=== PATIENT | male | born 1980 | race Caucasian/White ===

== ENCOUNTER 2016-03-16 15:34 | Inpatient (IN) | payer MEDICAID ==
[~2016-03-16] VITALS: Ht 190.5 cm; Wt 107.4 kg
[~2016-03-16 15:34] MED LIST: ABILIFY10 MG PO; ACCURETIC 10-121 TAB PO; ELAVIL25 MG PO; GEODON20 MG PO; GLUCOPHAGE500 MG PO; HUMALOG 30100 UNITS/ INJ; KEFLEX500 MG PO; LAMICTAL25 MG PO; LANTUS INSULIN10 ML SC; LIPITOR10 MG PO; LYRICA75 MG PO; MOBIC7.5 MG PO; NEURONTIN 300300 MG PO; NOVOLOG100 U/M1 SQ; PROTONIX40 MG PO; ZOCOR40 MG PO
[2016-03-16 16:12] LABS: HEMATOCRIT 42.6 % (42.0-54.0); HEMOGLOBIN 14.3 g/dL (13.5-17.5); MCH 29.1 pg (26.0-34.0); MCHC 33.6 g/dL (31.0-37.0); MCV 86.6 fL (80.0-100.0); MEAN PLATELET VOLUME 9.2 fL (7.4-10.4); PLATELET COUNT 527 10x3/uL (130-400); RBC 4.92 10x6/uL (4.20-6.10); RDW 12.7 % (11.5-14.5); WBC 21.9 10x3/uL (4.8-10.8)
[2016-03-16 16:37] LABS: ALBUMIN 3.1 g/dL (3.4-5.0); ALKALINE PHOSPHATASE 140 U/L (46-116); ALT (SGPT) 19 U/L (10-68); AMYLASE - SERUM 24 U/L (25-115); BILIRUBIN - TOTAL 0.43 mg/dL (0.2-1.3); CALC OSMOLALITY 273 mosm/kg (275-300); CALCIUM 9.2 mg/dL (8.5-10.1); CARBON DIOXIDE 26.6 mmol/L (21.0-32.0); CHLORIDE - SERUM 95 mmol/L (98-107); GLUCOSE 223 mg/dL (74-106); LIPASE 42 U/L (73-393); POTASSIUM - SERUM 4.4 mmol/L (3.5-5.1); PROTEIN - SERUM 7.6 g/dL (6.4-8.2); SODIUM 134 mmol/L (136-145); UREA NITROGEN 10 mg/dL (7-18); eGFR NON AFRICAN AMERICAN > 90 mL/min (90-120)
[2016-03-16 17:10] LABS: APPEARANCE CLEAR (CLEAR); BILIRUBIN NEGATIVE (NEGATIVE); COLOR DK YELLOW (YELLOW); GLUCOSE 100 mg/dL (NEGATIVE); KETONE MODERATE mg/dL (NEGATIVE); LEUKOCYTE ESTERASE NEGATIVE (NEGATIVE); NITRITE NEGATIVE (NEGATIVE); PROTEIN 1+ mg/dL (NEGATIVE); SPECIFIC GRAVITY 1.015 (1.005-1.020); UROBILINOGEN NORMAL (NORMAL)
[2016-03-16 17:12] LABS: UDS - AMPHET NEGATIVE QUAL (NEGATIVE); UDS - BARB NEGATIVE QUAL (NEGATIVE); UDS - BENZO NEGATIVE QUAL (NEGATIVE); UDS - COCAINE NEGATIVE QUAL (NEGATIVE); UDS - METH NEGATIVE QUAL (NEGATIVE); UDS - OPIATE POSITIVE QUAL (NEGATIVE); UDS - PCP NEGATIVE QUAL (NEGATIVE); UDS - THC NEGATIVE QUAL (NEGATIVE)
[2016-03-16 17:12] LABS: EOSINOPHILS 4 % (0-7); LYMPHOCYTES 16 % (15-50); MONOCYTES 1 % (2-11); NEUTROPHILS 79 % (40-80); PLATELET ESTIMATE INCREASED
--- NOTE | 2016-03-16 18:47 | NUR ---
ER NURSE IS IN ROOM BRINGING PT TO FLOOR. PT TRANSPORTED VIA BED FROM ER.
[2016-03-16] MEDS ORDERED: KADIAN60 MG PO (18:54)
--- NOTE | 2016-03-16 18:55 | NUR ---
IV INFUSING TO LEFT UPPER ARM. MULTIPLE SORES (SOME OPEN, SOME SCABS) SEEN TO BILATERAL LOWER EXTREMITIES, TWO SORES (LARGE) TO HEAD (TOP OF HEAD OPEN, OVAL SHAPE) (RIGHT SIDED HEAD SEEN WITH SCABS). LEFT SIDE OF NOSE, RED AND SWOLLEN. ROOM AIR. WILL ADMIT AND PASS THIS REPORT TO NEXT SHIFT.
--- NOTE | 2016-03-16 19:30 | NUR ---
SITTING UP ON SIDE OF BED, UP AD MABEL W/O DIFF. NS INFUSING W/O DIFF VIA PUMP AT 125CC/HR TO LEFT UPPER AARM IV WITH NO R/S NOTED AT SITE.HEAD WOUNDS OPEN TO AIR, WITH PURENLENT ODORICIC DRAINAGE NOTED. BILAT LOWER LEGS WITH OPEN SORES AND MULTIPLE SCABBED OVER AREAS NOTED. STATES "THE ONE ON TOP OF MY HEAD STARTED WITH SUNBURN". NOSE RED AND SWOLLEN ON LEFT SIDE. WILL LET WOUND CARE NURSE KNOW OF WOUNDS. DENIES NEEDS AT THIS TIME. C/L IN REACH. CONTINUE TO MONITOR.
--- NOTE | 2016-03-16 20:05 | NUR ---
FSBS "276" COVERED WITH 10UNITS HUMALOG INSULIN PER S/S ORDERS. JANEL INJ WELL.
[2016-03-16 21:18] VITALS: BP 154/88
--- NOTE | 2016-03-17 00:09 | NUR ---
FSBS "266" COVERED WITH 10 UNITS HUMALOG INSULIN PER S/S ORDERS. JANEL INJ WELL TO LEFT UPPER ARM. C/L IN REACH.
[2016-03-17 01:12] VITALS: BP 172/77
--- NOTE | 2016-03-17 03:22 | NUR ---
EYES CLOSED, RESP UNLAB WITH NO S/S OF ACUTE DISTRESS NOTED. C/L IN REACH. CONTINUE TO MONITOR.
[2016-03-17 05:21] VITALS: BP 173/83
[2016-03-17 07:51] LABS: BASOPHILS 0.4 % (0.0-2.0); EOSINOPHILS 0.4 % (0-7); HEMATOCRIT 36.1 % (42.0-54.0); HEMOGLOBIN 11.8 g/dL (13.5-17.5); IMMATURE GRANULOCYTES 0.5 % (0-5); LYMPHOCYTES 11.3 % (15-50); MCH 28.2 pg (26.0-34.0); MCHC 32.7 g/dL (31.0-37.0); MCV 86.2 fL (80.0-100.0); MONOCYTES 9.4 % (2-11); RBC 4.19 10x6/uL (4.20-6.10); RDW 12.7 % (11.5-14.5)
--- NOTE | 2016-03-17 08:02 | NUR ---
ASSESSMENT DONE. PT SITTING UP IN BED EATTING. A/O X3. PT IS EATING IN THE DARK. STATES THE LIGHT HURTS HIS HEAD. NO DISTRESS NOTED. PT DENIES NEEDS AT THIS TIME. CALL LIGHT WITH IN REACH. WILL CONT. TO MONITOR.
[2016-03-17 08:04] LABS: PLATELET COUNT 419 10x3/uL (130-400); WBC 16.1 10x3/uL (4.8-10.8)
[2016-03-17 08:15] LABS: ALBUMIN 2.4 g/dL (3.4-5.0); ALKALINE PHOSPHATASE 112 U/L (46-116); BILIRUBIN - TOTAL 0.39 mg/dL (0.2-1.3); CALCIUM 8.7 mg/dL (8.5-10.1); CHLORIDE - SERUM 92 mmol/L (98-107); PROTEIN - SERUM 7.1 g/dL (6.4-8.2); SODIUM 128 mmol/L (136-145); UREA NITROGEN 8 mg/dL (7-18); eGFR NON AFRICAN AMERICAN > 90 mL/min (90-120)
[2016-03-17 08:20] LABS: ALT (SGPT) 14 U/L (10-68); CALC OSMOLALITY 264 mosm/kg (275-300); CARBON DIOXIDE 19.7 mmol/L (21.0-32.0); GLUCOSE 280 mg/dL (74-106); POTASSIUM - SERUM 3.6 mmol/L (3.5-5.1)
[2016-03-17 08:46] LABS: KETONE - SERUM SMALL mg/dL (NEGATIVE)
[2016-03-17 08:51] VITALS: BP 146/80
--- NOTE | 2016-03-17 09:33 | NUR ---
RESTS IN BED WITH CALL LIGHT IN REACH. DR. ANTHONY AT BS. WILL CONT. PLAN OF CARE.
--- NOTE | 2016-03-17 09:44 | NUR ---
PT PLACED ON TEMP CONTACT ISOLATION FOR POSSIBLE MRSA OF HEAD WOUNDS.
[2016-03-17 12:17] VITALS: BP 175/97
[2016-03-17 13:17] VITALS: Ht 190.5 cm; Wt 107.4 kg
[2016-03-17 14:53] VITALS: BP 171/93
--- NOTE | 2016-03-17 18:02 | NUR ---
PT RESTING. APPEARS COMFORTABLE. RESP EVEN AND UNLABORED. CALL LIGHT WITH IN REACH. WILL CONT. TO MONITOR.
[2016-03-17 20:00] VITALS: BP 151/72
--- NOTE | 2016-03-17 23:26 | NUR ---
Recieved report, assessment done, patient alert and oriented, contact isolation, Left upper arm IV with NS @ 125 , patient reported head pain 8 of 10, PRN MS 4 mg IV given at 2132, no acute distress noted, call light water and bedside table within reach, will continue to monitor.
[2016-03-18] VITALS: BP 135/51
--- NOTE | 2016-03-18 01:13 | NUR ---
Patient resting quietly in bed, call light, water and bedside table within reach, continue plan of care, will continue to monitor.
--- NOTE | 2016-03-18 01:55 | NUR ---
Patient reported head pain og 9 of 10, MS 4 mg given IV, sores on legs covered with gaause 4 x 4 and kerlix for patient comfort.
[2016-03-18 04:00] VITALS: BP 136/64
--- NOTE | 2016-03-18 04:56 | NUR ---
Patient resting in bed eyes closed, call light and water in reach, willcontinue to monitor.
[2016-03-18 06:03] LABS: BASOPHILS 0.5 % (0.0-2.0); EOSINOPHILS 1.4 % (0-7); HEMOGLOBIN 11.5 g/dL (13.5-17.5); IMMATURE GRANULOCYTES 0.5 % (0-5); LYMPHOCYTES 13.9 % (15-50); MCH 27.9 pg (26.0-34.0); MCHC 32.9 g/dL (31.0-37.0); MEAN PLATELET VOLUME 9.2 fL (7.4-10.4); MONOCYTES 9.7 % (2-11); PLATELET COUNT 439 10x3/uL (130-400); RBC 4.12 10x6/uL (4.20-6.10); RDW 12.7 % (11.5-14.5); WBC 13.3 10x3/uL (4.8-10.8)
[2016-03-18 06:41] LABS: ALBUMIN 2.6 g/dL (3.4-5.0); ALKALINE PHOSPHATASE 107 U/L (46-116); CALCIUM 7.9 mg/dL (8.5-10.1); CHLORIDE - SERUM 94 mmol/L (98-107); POTASSIUM - SERUM 3.8 mmol/L (3.5-5.1); PROTEIN - SERUM 6.3 g/dL (6.4-8.2); SODIUM 130 mmol/L (136-145); UREA NITROGEN 6 mg/dL (7-18)
[2016-03-18 06:43] LABS: ALT (SGPT) 18 U/L (10-68); CALC OSMOLALITY 260 mosm/kg (275-300); CARBON DIOXIDE 28.6 mmol/L (21.0-32.0); CREATININE - SERUM 0.7 mg/dL (0.6-1.3); GLUCOSE 136 mg/dL (74-106); eGFR NON AFRICAN AMERICAN > 90 mL/min (90-120)
--- NOTE | 2016-03-18 07:18 | HP ---
PATIENT: MARK HACKETT MEDICAL RECORD: [id number] ACCOUNT: [id number] LOCATION:[address] : [birth year] ADMISSION DATE: 03/16/16 HISTORY AND PHYSICAL EXAMINATION DATE OF ADMISSION: 03/16/2016 CHIEF COMPLAINT: Nausea and vomiting. HISTORY OF PRESENT ILLNESS: The patient is a 35-year-old insulin-dependent diabetic who states for the past couple of weeks, he has had nausea and vomiting. He has had sores on his head. He also thinks that he may be in DKA. PAST MEDICAL HISTORY: Apparently, the patient is disabled secondary to insulin-dependent diabetes. He has had a history of diabetic ketoacidosis. The patient has history of having peripheral neuropathy as well as having hyperlipidemia and hypertension. SOCIAL HISTORY: The patient was born and raised in [place], lived in [place] for the past 10 years. He is and a father of 3. HABITS: The patient is a smoker. He denies any ethanol use or abuse. ALLERGIES: PENICILLIN, BETA BLOCKERS, LAMICTAL. MEDICATIONS: Include: 1. Zocor 40 mg 1 p.o. every day. 2. Lisinopril 10 mg 1 p.o. every day. 3. Metformin 1000 mg 1 tablet b.i.d. 4. Lyrica 300 mg b.i.d. 5. NovoLog 55 units with each meal, sliding scale. 6. Lantus 37 units subQ twice daily. 7. Wellbutrin 150 mg b.i.d. REVIEW OF SYSTEMS: CONSTITUTIONAL: He denies any headaches, seizure or syncope. Denies change in visual or auditory acuity. PULMONARY: He denies any shortness of breath, cough, congestion, history of TB, asthma or bronchitis. CARDIOVASCULAR: He has had no chest pain, palpitation, PND or orthopnea. GASTROINTESTINAL: No chronic nausea, vomiting, melena or hematochezia. GENITOURINARY: No urgency, frequency, or dysuria. PHYSICAL EXAMINATION: GENERAL: He is not well kept male who is in no acute distress at the present time. He is tachycardic. VITAL SIGNS: Temperature 98.5, his pulse was 126, his respirations 20, his blood pressure 138/78. HEENT: Head is normocephalic. The patient does have an area on the cranium, which appears to be old in nature, healing, approximately 6 cm. He also has a fluctuant erythematous area on the right posterior occiput. His HEENT is normal. NECK: Supple. There is no adenopathy. HEART: Has regular rhythm. No murmurs, gallops or rubs. LUNGS: Clear. HISTORY AND PHYSICAL [id number] BURE,MARK ABDOMEN: Soft, bowel sounds are positive. EXTREMITIES: Lower extremities: The patient has 2+ dorsalis pedis and posterior tibial pulses. He has diffuse areas of lesions approximately measuring 2-3 cm above the anterior tibial surfaces that are devoid of skin. There is erythema. There is some yellow exudate present. LABORATORY DATA: White count was 21.9, his hemoglobin 14.3, hematocrit 42.6, his platelets were 527. The patient was positive for opioids. Sodium is 134, potassium 4.4, chloride 95, his CO2 is 26, anion gap 16.8, BUN is 10, creatinine of 1, glucose was 233. Ammonia was 55, lipase 42 and amylase 24. ASSESSMENT: Insulin-dependent diabetic with cellulitis, history of bipolar, hypertension, hyperlipidemia. PLAN: The patient is admitted. Blood cultures will be obtained. Also, we will check cultures for MRSA. He will be placed onto the floor. Infectious disease consultation will be obtained. He will be placed on insulin sliding scale q.6 hours as well. TRANSINT:[id number] Voice Confirmation ID: [id number] DOCUMENT ID: [id number] IRVIN KINNEY MD at 0718 CC: [id number] DICTATION DATE: 03/17/16724 RICKSHAW DRIVER: 03/17/16 0755 ADM IN [facility] [place] [id number] [place] [address]
--- NOTE | 2016-03-18 07:25 | NUR ---
ASSESSMENT DONE. PT SLIGHTLY DROWSY TALKING ON PHONE. O2 SAT 89% ON RA. PLACED ON 2L O2 VIA NC TO KEEP O2 SAT > 92%. PT'S NOSE RED, BUT SWELLING HAS IMPROVED, PT ABLE TO BREATH THROUGH NOSE. SWELLING AROUND EYES NOTED. PT DENIES NEEDS AT THIS TIME. WILL CONT. TO MONITOR.
[2016-03-18 08:34] VITALS: BP 146/78
--- NOTE | 2016-03-18 10:01 | NUR ---
RESTS IN ISOLATION WITH CALL LIGHT IN REACH. WILL MONITOR NEEDS.
[2016-03-18 11:00] VITALS: BP 127/63
--- NOTE | 2016-03-18 11:55 | NUR ---
PT WITH TEMP OF 100.8. DR. CONNELL HERE. REC'D ORDER FOR TYLENOL. MADE PT AN ICE PACK FOR SWELLING AND PAIN IN THE RIGHT SIDE OF HIS HEAD. HEAT IS NO LONGER EFFECTIVE IN RELIEVING PAIN. WILL CONT. TO MONITOR.
--- NOTE | 2016-03-18 12:39 | NUR ---
PT SLEEPING. APPEARS COMFORTABLE. RESP EVEN AND UNLABORED. CALL LIGHT WITH IN REACH. WILL CONT. TO MONITOR.
--- NOTE | 2016-03-18 13:40 | NUR ---
PT STATES HE IS FEELING BETTER. AMBULATING IN HALLS WITH FAMILY.
--- NOTE | 2016-03-18 15:36 | NUR ---
PT'S IV INFILTRATED. NURSE ATTEMPTED TO RESITE X3 AND WAS ABLE TO GET A FLASH OF BLOOD EACH TIME BUT THE VEIN WOULD BLOW WHEN FLUSING IV. CALLED SANDY THE VENOUS ACCESS NURSE AND LEFT A MESSAGE FOR HER TO RETURN MY CALL.
--- NOTE | 2016-03-18 15:38 | NUR ---
Patient Name: MARK HACKETT Admission Status: ER Accout number: [id number] Admission Date: 03-16-2016 : 1980 Admission Diagnosis:TYPE 1 DIABETES MELLITUS WITH KETOACIDOSIS WITHOUT COMA Attending: WILI Current LOS: 2 Anticipated DC Date: 03-22-2016 Planned Disposition: Home or Self Care Primary Insurance: MEDICAID [place] Discharge Planning Comments: CM MET WITH PATIENT REGARDING D/C NEEDS AND PLANS. PATIENT STATED HE LIVES WITH HIS SPOUSE (WILLIAN) AND SHE WILL DRIVE HIM HOME AT DISCHARGE. PATIENT STATES THERE ARE NO STEPS OR STAIRS AT HIS HOME. PATIENT STATED HE IS INDEPENDENT WITH HIS CARE AND HAS NO DME AT HOME. PATIENTS PCP IS DR. ARROYO AND PHARMACY IS [facility] [address] [facility]. PATIENT HAS A CANE AND GLUCOMETER AT HOME. PATIENT STATED HE CHECKS HIS BLOOD SUGAR OFTEN. PATIENT HAS REFUSED HOME HEALTH AT THIS TIME. CM WILL CONTINUE TO FOLLOW PATIENT WITH D/C NEEDS AND PLANS. PCP DR. CRUZ SCHULZ ON [address] [facility] [phone] WILLIAN (SPOUSE) [phone] Dub Room Engineer: Kaya Brock Is the patient Alert and Oriented? Yes 0 * How many steps to enter\exit or inside your home? 0 0 * PCP DR. ARROYO 0 * Pharmacy [facility] [address] * Preadmission Environment Home with Family 0 * ADLs Independent 0 * Equipment None 0 * List name and contact numbers for known caregivers / representatives who currently or will assist patient after discharge: WILLIAN (SPOUSE) [phone] 0 * Community resources currently utilized None 0 * Additional services required to return to the preadmission environment? Yes 0 * Can the patient safely return to the preadmission environment? Yes 0 * Has this patient been hospitalized within the prior 30 days at any hospital? No 0 Grand Total: 0
[2016-03-18 16:39] VITALS: BP 134/72
--- NOTE | 2016-03-18 17:27 | NUR ---
22G IV PLACED IN PT'S RIGHT WRIST BY STONE CAMPOS RN.
--- NOTE | 2016-03-18 17:39 | NUR ---
PT SITTING UP IN BED EATING AND WATCHING TV. NO DISTRESS NOTED. CALL LIGHT WITH IN REACH. WILL CONT. TO MONITOR.
--- NOTE | 2016-03-18 19:20 | NUR ---
PT. IN BED WITH HOB UP FOR COMFORT WATCHING T.V. I.V. INFUSING VIA PUMP INTO RT.WRIST OF N.S. @ 125/HR WITHOUT ANY ALARMS. ASSESSMENT COMPLETED. O2 ON AT 2L/MIN VIA N/C TO KEEP O2 SAT UP. CALL LIGHT WITHIN REACH FOR ANY NEEDS. PT. UNDERSTANDS REASON FOR CONTACT ISOLATION PRECAUTIONS.
[2016-03-18 20:00] VITALS: BP 141/68
[2016-03-19] VITALS: BP 119/72
--- NOTE | 2016-03-19 00:05 | NUR ---
PT. IN BED WITH HOB UP FOR COMFORT WITH EYES CLOSED AND RESP. EVEN. O2 ON VIA N/C @ 2L/MIN. NO VISIBLE DISTRESS OBSERVED. CALL LIGHT WITHIN REACH.
[2016-03-19 04:00] VITALS: BP 120/68
--- NOTE | 2016-03-19 04:01 | NUR ---
PT. IN BED WITH HOB UP FOR COMFORT WITH EYES CLOSED AND RESP. EVEN WITH CALL LIGHT WITHIN REACH.
[2016-03-19 04:59] LABS: BASOPHILS 0.5 % (0.0-2.0); HEMATOCRIT 30.8 % (42.0-54.0); HEMOGLOBIN 10.1 g/dL (13.5-17.5); IMMATURE GRANULOCYTES 0.5 % (0-5); LYMPHOCYTES 20.7 % (15-50); MCH 27.9 pg (26.0-34.0); MCHC 32.8 g/dL (31.0-37.0); MCV 85.1 fL (80.0-100.0); MEAN PLATELET VOLUME 9.5 fL (7.4-10.4); MONOCYTES 9.1 % (2-11); NEUTROPHILS 66.2 % (40-80); PLATELET COUNT 386 10x3/uL (130-400); RBC 3.62 10x6/uL (4.20-6.10); RDW 12.6 % (11.5-14.5); WBC 10.2 10x3/uL (4.8-10.8)
[2016-03-19 05:20] LABS: CALCIUM 8.3 mg/dL (8.5-10.1); CARBON DIOXIDE 28.8 mmol/L (21.0-32.0); CHLORIDE - SERUM 93 mmol/L (98-107); CREATININE - SERUM 0.7 mg/dL (0.6-1.3); SODIUM 129 mmol/L (136-145); UREA NITROGEN 6 mg/dL (7-18); eGFR NON AFRICAN AMERICAN > 90 mL/min (90-120)
[2016-03-19 05:22] LABS: CALC OSMOLALITY 254 mosm/kg (275-300); GLUCOSE 66 mg/dL (74-106); POTASSIUM - SERUM 3.2 mmol/L (3.5-5.1)
--- NOTE | 2016-03-19 07:39 | NUR ---
ASSESSMENT DONE. PT SLEEPING, EASILY AROUSED. SEEMS SLIGHTY DROUSY FROM ALL THE MORHINE HE HAS BEEN GETTING. NOT WEARING O2. NURSE ENCOURGE PT TO WEAR OXYGEN. PT HAD REMOVED BILATERAL LE DRESSING AND WAS COVERING WOUNDS WITH A WASH CLOTH. WILL RE-DRESS. PT DENIES OTHER NEEDS AT THIS TIME. SWELLING AROUND EYES AND NOSE HAS IMPROVED. WILL CONT. TO MONITOR. CALL LIGHT WITH IN REACH.
[2016-03-19 08:31] VITALS: BP 138/74
--- NOTE | 2016-03-19 09:43 | NUR ---
RESTS IN ISOLATION ROOM. CALL LIGHT IN REACH. WILL MONITOR NEEDS.
[2016-03-19 12:05] VITALS: BP 145/82
--- NOTE | 2016-03-19 12:20 | NUR ---
PT SHOWERED. NURSE APPLED DRESSINGS TO BILATERAL LOWER EXTREMITES. WOUNDS BLEEDING. IT APPEARS PT PICKED ALL THE SCABS OFF WHILE IN THE SHOWER.
[2016-03-19 16:00] VITALS: BP 116/66
--- NOTE | 2016-03-19 16:04 | NUR ---
PT SLEEPING. APPEARS COMFORTABLE. RESP EVEN AND UNLABORED. NO DISTRESS NOTED. CALL LIGHT WITH IN REACH. WILL CONT. TO MONITOR.
--- NOTE | 2016-03-19 18:05 | NUR ---
PT SITTING STYLE ON BED. WATCHING TV. A/O. DENIES NEEDS AT THIS TIME. CALL LIGHT WITH IN REACH. WILL CONT. TO MONITOR.
--- NOTE | 2016-03-19 19:42 | NUR ---
RESUMED CARE OF PT, 02-2L, IV-R. WRIST NS-125, BILATERAL DRESSING TO LOWER LEGS, ON ISO CONTACT,DENIES ANY NEEDS, CALL LIGHT IN REACH, BED IS LOW, WILL CONTINUE TO MONITOR
[2016-03-19 20:49] VITALS: BP 117/64
--- NOTE | 2016-03-19 23:42 | NUR ---
BLOODSUGAR 150- NO COVERAGE NEEDED PER SCALE
[2016-03-20 00:02] VITALS: BP 137/74
[2016-03-20 04:15] VITALS: BP 144/82
--- NOTE | 2016-03-20 06:04 | NUR ---
STUARTBETH-58, GAVE 2 ORANGE JUCIES
--- NOTE | 2016-03-20 07:28 | NUR ---
AM ROUNDING- PT SITTING UP IN BED WITH EYES OPEN. IN CONTACT ISOLATION FOR MRSA WITH DRAINING LESION. FSBS Q6H, 61 THIS AM. ON O2 AT 2L VIA NC WHEN NEEDED. CAN BE ON ROOM AIR PER REPORT FROM TAPPER SUPERVISOR NURSE, MILADYS. PT IS UP AD MABEL. ALERT AND ORIENTED. IV SEEN TO RIGHT WRIST WITH NS RUNNING AT 125CC. NO NEED AT CURRENT TIME. WILL CONTINUE TO MONITOR.
[2016-03-20 08:55] VITALS: BP 123/76
[2016-03-20 13:42] VITALS: BP 119/90
[2016-03-20 17:02] VITALS: BP 123/73
--- NOTE | 2016-03-20 17:18 | NUR ---
APPLIED ANTIBIOTIC OINTMENT TO PTS WOUNDS/SCABS TO BILATERAL LEGS ORDERED. COVERED WITH 4X4 GUAZE AND SECURED WITH KERLIX AND TAPE. TOLERATED WELL.
--- NOTE | 2016-03-20 17:25 | NUR ---
PT SITTING UP IN BED EATING DINNER. NO NEED AT CURRENT TIME. WILL CONTINUE TO MONITOR.
--- NOTE | 2016-03-20 19:51 | NUR ---
RESUME CARE OF PT, 02-2L, [id number], CLINDAMYCIN INFUSING, DENIES ANY NEEDS, CALL LIGHT IN REACH, WILL CONTINUE TO MONITOR
[2016-03-20 20:15] VITALS: BP 124/83
[2016-03-21 00:23] VITALS: BP 113/64
[2016-03-21 04:20] VITALS: BP 108/60
[2016-03-21 05:47] LABS: CALC OSMOLALITY 265 mosm/kg (275-300); CALCIUM 8.2 mg/dL (8.5-10.1); CARBON DIOXIDE 30.5 mmol/L (21.0-32.0); CHLORIDE - SERUM 97 mmol/L (98-107); CREATININE - SERUM 0.6 mg/dL (0.6-1.3); GLUCOSE 90 mg/dL (74-106); POTASSIUM - SERUM 3.7 mmol/L (3.5-5.1); SODIUM 134 mmol/L (136-145); UREA NITROGEN 6 mg/dL (7-18); eGFR NON AFRICAN AMERICAN > 90 mL/min (90-120)
[2016-03-21 06:09] LABS: BASOPHILS 1.3 % (0.0-2.0); EOSINOPHILS 5.7 % (0-7); HEMATOCRIT 32.5 % (42.0-54.0); HEMOGLOBIN 10.6 g/dL (13.5-17.5); IMMATURE GRANULOCYTES 0.7 % (0-5); LYMPHOCYTES 30.8 % (15-50); MCHC 32.6 g/dL (31.0-37.0); MCV 85.8 fL (80.0-100.0); MEAN PLATELET VOLUME 9.2 fL (7.4-10.4); MONOCYTES 11.6 % (2-11); NEUTROPHILS 49.9 % (40-80); PLATELET COUNT 360 10x3/uL (130-400); RBC 3.79 10x6/uL (4.20-6.10); RDW 12.7 % (11.5-14.5); WBC 6.8 10x3/uL (4.8-10.8)
--- NOTE | 2016-03-21 07:37 | NUR ---
AM ROUNDING- PT LAYING IN BED ON RIGHT SIDE WITH EYES OPEN. FSBS Q6H, 77 THIS AM, NO COVERAGE NEEDED. IV SEEN TO RIGHT WRIST WITH NS RUNNING AT 50CC. ON 2L OF VIA CO. NO MONITOR. IN CONTACT ISOLATION FOR MRSA. SCABS SEEN TO BILATERAL LEGS. TWO SCABS SEEN TO TOP OF HEAD. PT IS ALERT AND ORIENTED, UP AD MABEL. NO NEED AT CURRENT TIME. WILL CONTINUE TO MONITOR.
[2016-03-21 08:00] VITALS: BP 121/72
[2016-03-21] MEDS ORDERED: CARDIZEM CD240 MG PO (09:31)
[2016-03-21] MEDS ORDERED: NEOSPORIN OINTM15 GM TOPICAL (09:32)
[2016-03-21] MEDS ORDERED: CLEOCIN HCL150 MG PO (09:32)
--- NOTE | 2016-03-21 12:19 | NUR ---
PT STATED HE WOULD TAKE NOON INSULIN AT HOME. EXPLAINED PTS D/C PAPERWORK TO HIM. PT SIGNED AND DATED D/C PAPERWORK. IV REMOVED WITH CATH TIP INTACT. TOLERATED WELL. SECURED WITH 2X2 GUAZE AND SECURED WITH TAPE. AWAITING PT TO GET BELONGINGS FOR GATE PERSONBrady DORSEY TO TAKE HIM OUT IN WHEELCHAIR.
--- NOTE | 2016-03-21 12:22 | NUR ---
PT D/C TO HOME VIA WHEELCHAIR.
== END 2016-03-21 12:24 | disposition home or self-care (01) | DRG 638 ==
LOC: D.ER 15:34 → D.M2 18:22
PROVIDERS: Emergency Medicine; Family Medicine; ADMIT Family Medicine
DX: E10.10 Type 1 diabetes mellitus with ketoacidosis without coma (principal); L97.909 Non-pressure chronic ulcer of unspecified part of unspecified lower leg with unspecified severity; L03.811 Cellulitis of head [any part, except face]; Z79.4 Long term (current) use of insulin; E78.5 Hyperlipidemia, unspecified; I10 Essential (primary) hypertension; L98.499 Non-pressure chronic ulcer of skin of other sites with unspecified severity; B95.62 Methicillin resistant Staphylococcus aureus infection as the cause of diseases classified elsewhere

== ENCOUNTER 2016-05-06 00:50 | Emergency (ER) | payer MEDICAID ==
[2016-03-17 13:17] VITALS: BMI 27.8
[~2016-05-06 00:50] MED LIST changes: +CARDIZEM CD240 MG PO; +CLEOCIN HCL150 MG PO; +KADIAN60 MG PO; +NEOSPORIN OINTM15 GM TOPICAL
== END 2016-05-06 01:15 | disposition left against medical advice (07) ==
LOC: D.ER 00:50
DX: R07.9 Chest pain, unspecified (principal); R00.0 Tachycardia, unspecified; E11.9 Type 2 diabetes mellitus without complications; Z79.4 Long term (current) use of insulin; E78.5 Hyperlipidemia, unspecified

== ENCOUNTER 2017-11-25 05:55 | Inpatient (IN) | payer MEDICAID ==
[2017-11-25] VITALS (21 sets, daily range): BP systolic 109–164; BP diastolic 58–81; BMI 25.0
[~2017-11-25] VITALS: Ht 190.5 cm; Wt 93.3 kg
[2017-11-25 06:38] LABS: BASOPHILS 0.1 % (0-2); EOSINOPHILS 0.1 % (0-7); HEMATOCRIT 46.6 % (42.0-54.0); HEMOGLOBIN 15.7 g/dL (13.5-17.5); IMMATURE GRANULOCYTES 0.8 % (0-5); LYMPHOCYTES 5.2 % (15-50); MCH 31.6 pg (26.0-34.0); MCHC 33.7 g/dL (31.0-37.0); MCV 93.8 fL (80.0-100.0); MEAN PLATELET VOLUME 11.6 fL (7.4-10.4); MONOCYTES 3.7 % (2-11); NEUTROPHILS 90.1 % (40-80); RBC 4.97 10x6/uL (4.20-6.10); RDW 13.1 % (11.5-14.5); WBC 17.7 10x3/uL (4.8-10.8)
[2017-11-25 06:44] LABS: PLATELET COUNT 440 10x3/uL (130-400)
[2017-11-25 07:11] LABS: KETONE - SERUM SMALL mg/dL (NEGATIVE)
[2017-11-25 07:29] LABS: APPEARANCE CLEAR (CLEAR); BILIRUBIN NEGATIVE (NEGATIVE); COLOR YELLOW (YELLOW); GLUCOSE 500 mg/dL (NEGATIVE); KETONE LARGE mg/dL (NEGATIVE); NITRITE NEGATIVE (NEGATIVE); PROTEIN NEGATIVE (NEGATIVE); SPECIFIC GRAVITY 1.015 (1.005-1.020); UROBILINOGEN NORMAL (NORMAL)
[2017-11-25 07:30] LABS: ALBUMIN 3.3 g/dL (3.4-5.0); ALKALINE PHOSPHATASE 215 U/L (46-116); ALT (SGPT) 59 U/L (10-68); BILIRUBIN - TOTAL 0.65 mg/dL (0.2-1.3); CALCIUM 8.8 mg/dL (8.5-10.1); CHLORIDE - SERUM 88 mmol/L (98-107); CKMB 1.1 U/L (0.0-3.6); CREATINE KINASE 111 UL (21-232); CREATININE - SERUM 2.3 mg/dL (0.6-1.3); MAGNESIUM - SERUM 2.1 mg/dL (1.8-2.4); POTASSIUM - SERUM 5.1 mmol/L (3.5-5.1); PROTEIN - SERUM 7.8 g/dL (6.4-8.2); SODIUM 132 mmol/L (136-145); UREA NITROGEN 38 mg/dL (7-18); eGFR NON AFRICAN AMERICAN 34 mL/min (90-120)
[2017-11-25 07:38] LABS: CALC OSMOLALITY 311 mosm/kg (275-300); TROPONIN-I < 0.017 ng/mL (0.000-0.060)
[2017-11-25 07:39] LABS: CARBON DIOXIDE 7.7 mmol/L (21.0-32.0)
[2017-11-25 07:40] LABS: GLUCOSE 783 mg/dL (74-106)
[2017-11-25 07:48] LABS: PHOSPHOROUS 7.8 mg/dL (2.5-4.9); THYROID STIMULATING HORMONE 1.02 uIU/mL (0.36-3.74)
[2017-11-25] MEDS ORDERED: LOPRESSOR25 MG (10:34)
[2017-11-25 13:38] LABS: ANION GAP 22.1 mmol/L (8-16); CALCIUM 8.4 mg/dL (8.5-10.1); CARBON DIOXIDE 19.2 mmol/L (21.0-32.0); CREATININE - SERUM 1.7 mg/dL (0.6-1.3); MAGNESIUM - SERUM 1.8 mg/dL (1.8-2.4); POTASSIUM - SERUM 4.3 mmol/L (3.5-5.1)
[2017-11-25 16:22] LABS: ANION GAP 18.5 mmol/L (8-16); CALCIUM 8.7 mg/dL (8.5-10.1); CARBON DIOXIDE 21.5 mmol/L (21.0-32.0); CREATININE - SERUM 1.7 mg/dL (0.6-1.3); MAGNESIUM - SERUM 1.8 mg/dL (1.8-2.4)
[2017-11-25 20:04] LABS: ANION GAP 18.1 mmol/L (8-16); CALCIUM 8.4 mg/dL (8.5-10.1); CARBON DIOXIDE 22.9 mmol/L (21.0-32.0); CREATININE - SERUM 1.5 mg/dL (0.6-1.3); MAGNESIUM - SERUM 1.7 mg/dL (1.8-2.4)
[2017-11-26] VITALS (17 sets, daily range): BP systolic 105–161; BP diastolic 64–92; Ht 190.5 cm; Wt 93.3 kg
[2017-11-26 02:54] LABS: BASOPHILS 0.2 % (0-2); EOSINOPHILS 0 % (0-7); HEMATOCRIT 29.9 % (42.0-54.0); IMMATURE GRANULOCYTES 0.2 % (0-5); LYMPHOCYTES 9.7 % (15-50); MCH 29.9 pg (26.0-34.0); MCHC 33.4 g/dL (31.0-37.0); MEAN PLATELET VOLUME 9.4 fL (7.4-10.4); MONOCYTES 6.9 % (2-11); RBC 3.34 10x6/uL (4.20-6.10); RDW 12.4 % (11.5-14.5); WBC 12.7 10x3/uL (4.8-10.8)
[2017-11-26 02:55] LABS: MCV 89.5 fL (80.0-100.0); PLATELET COUNT 225 10x3/uL (130-400)
[2017-11-26 03:30] LABS: ALKALINE PHOSPHATASE 117 U/L (46-116); BILIRUBIN - TOTAL 0.33 mg/dL (0.2-1.3); CALC OSMOLALITY 295 mosm/kg (275-300); CARBON DIOXIDE 16.1 mmol/L (21.0-32.0); CHLORIDE - SERUM 110 mmol/L (98-107); CREATININE - SERUM 0.9 mg/dL (0.6-1.3); GLUCOSE 266 mg/dL (74-106); SODIUM 143 mmol/L (136-145); UREA NITROGEN 18 mg/dL (7-18); eGFR NON AFRICAN AMERICAN > 90 mL/min (90-120)
[2017-11-26 03:31] LABS: ALBUMIN 1.8 g/dL (3.4-5.0); ALT (SGPT) 27 U/L (10-68); CALCIUM 6.1 mg/dL (8.5-10.1); PROTEIN - SERUM 4.4 g/dL (6.4-8.2)
[2017-11-26 17:19] LABS: CHLORIDE - SERUM 100 mmol/L (98-107); CREATININE - SERUM 1.1 mg/dL (0.6-1.3); SODIUM 137 mmol/L (136-145); UREA NITROGEN 14 mg/dL (7-18); eGFR NON AFRICAN AMERICAN 80 mL/min (90-120)
[2017-11-26 17:20] LABS: CALC OSMOLALITY 279 mosm/kg (275-300); CALCIUM 8.4 mg/dL (8.5-10.1); CARBON DIOXIDE 23.6 mmol/L (21.0-32.0); GLUCOSE 197 mg/dL (74-106); POTASSIUM - SERUM 3.5 mmol/L (3.5-5.1)
[2017-11-27 00:55] VITALS: BP 148/64
[2017-11-27 05:38] LABS: BASOPHILS 0.5 % (0-2); EOSINOPHILS 0.5 % (0-7); HEMOGLOBIN 10.9 g/dL (13.5-17.5); IMMATURE GRANULOCYTES 0.3 % (0-5); LYMPHOCYTES 33.6 % (15-50); MCH 29.9 pg (26.0-34.0); MCV 90.7 fL (80.0-100.0); MEAN PLATELET VOLUME 9.5 fL (7.4-10.4); MONOCYTES 8.7 % (2-11); NEUTROPHILS 56.4 % (40-80); PLATELET COUNT 213 10x3/uL (130-400); RBC 3.64 10x6/uL (4.20-6.10); RDW 12.4 % (11.5-14.5)
[2017-11-27 05:45] LABS: WBC 7.7 10x3/uL (4.8-10.8)
[2017-11-27 06:11] LABS: ALBUMIN 2.1 g/dL (3.4-5.0); CALCIUM 7.6 mg/dL (8.5-10.1); POTASSIUM - SERUM 3.2 mmol/L (3.5-5.1); SODIUM 142 mmol/L (136-145)
[2017-11-27 06:36] VITALS: BP 129/64
[2017-11-27 06:41] LABS: ALKALINE PHOSPHATASE 146 U/L (46-116); ALT (SGPT) 32 U/L (10-68); BILIRUBIN - TOTAL 0.27 mg/dL (0.2-1.3); CARBON DIOXIDE 24.9 mmol/L (21.0-32.0); CHLORIDE - SERUM 106 mmol/L (98-107); PROTEIN - SERUM 5.2 g/dL (6.4-8.2)
[2017-11-27 06:45] LABS: CALC OSMOLALITY 280 mosm/kg (275-300); CREATININE - SERUM 0.8 mg/dL (0.6-1.3); GLUCOSE 96 mg/dL (74-106); UREA NITROGEN 8 mg/dL (7-18); eGFR NON AFRICAN AMERICAN > 90 mL/min (90-120)
[2017-11-27 12:17] VITALS: BP 166/91
== END 2017-11-27 15:16 | disposition home or self-care (01) | DRG 639 ==
LOC: D.ER 05:55 → D.CVICU 08:54 → D.ICU 20:43 → D.M3 11-26 14:37
PROVIDERS: Emergency Medicine; Family Medicine
DX: E10.10 Type 1 diabetes mellitus with ketoacidosis without coma (principal); Z79.4 Long term (current) use of insulin; I10 Essential (primary) hypertension; F31.9 Bipolar disorder, unspecified; E10.40 Type 1 diabetes mellitus with diabetic neuropathy, unspecified; E78.5 Hyperlipidemia, unspecified; F17.210 Nicotine dependence, cigarettes, uncomplicated

== ENCOUNTER 2018-02-03 11:34 | Emergency (ER) | payer MEDICAID ==
[~2018-02-03] VITALS: Ht 190.5 cm; Wt 99.8 kg
[~2018-02-03 11:34] MED LIST changes: +LOPRESSOR25 MG
[2018-02-03 11:58] VITALS: BP 130/94; Ht 190.5 cm; Wt 99.8 kg
[2018-02-03] MEDS ORDERED: CIPRODEX OTIC7.5 ML LEFT EAR (12:40)
[2018-02-03] MEDS ORDERED: TORADOL10 MG PO (12:40)
[2018-02-03] MEDS ORDERED: DOXYCYCLINE HY100 M2 PO (12:40)
== END 2018-02-03 14:00 | disposition home or self-care (01) ==
LOC: D.ER 11:34
DX: H66.92 Otitis media, unspecified, left ear (principal); J01.90 Acute sinusitis, unspecified; E11.9 Type 2 diabetes mellitus without complications; I10 Essential (primary) hypertension; F17.200 Nicotine dependence, unspecified, uncomplicated

== ENCOUNTER → 2018-05-15 10:18 | Outpatient (CLI) | payer MEDICAID ==
[2018-02-03 11:58] VITALS: BMI 25.7
[~2018-05-15 10:18] MED LIST changes: +CIPRODEX OTIC7.5 ML LEFT EAR; +DOXYCYCLINE HY100 M2 PO; +TORADOL10 MG PO
== END | disposition home or self-care (01) ==
LOC: D.US 10:18
PROVIDERS: ATTEND Emergency Medicine
DX: R19.7 Diarrhea, unspecified (principal)

== ENCOUNTER 2018-11-06 21:48 | Inpatient (IN) | payer MEDICAID ==
[~2018-11-06] VITALS: Ht 190.5 cm; Wt 100.1 kg
[~2018-11-06 21:48] MED LIST changes: +LANTUS SOL100 UNIT/1 SQ; -LOPRESSOR25 MG; +LOPRESSOR25 MG PO
[2018-11-06] MEDS ORDERED: ZYPREXA10 MG PO (21:50)
[2018-11-06] MEDS ORDERED: ZETIA10 MG PO (21:51)
[2018-11-06 22:12] LABS: APPEARANCE CLEAR (CLEAR); BILIRUBIN NEGATIVE (NEGATIVE); COLOR YELLOW (YELLOW); GLUCOSE 1000 mg/dL (NEGATIVE); KETONE LARGE mg/dL (NEGATIVE); NITRITE NEGATIVE (NEGATIVE); PROTEIN NEGATIVE (NEGATIVE); UROBILINOGEN NORMAL (NORMAL)
[2018-11-06 22:29] LABS: BASOPHILS 0.9 % (0-2); EOSINOPHILS 1.2 % (0-7); HEMATOCRIT 38.9 % (42.0-54.0); HEMOGLOBIN 13.2 g/dL (13.5-17.5); IMMATURE GRANULOCYTES 0.3 % (0-5); LYMPHOCYTES 27.6 % (15-50); MCH 30.5 pg (26.0-34.0); MCHC 33.9 g/dL (31.0-37.0); MCV 89.8 fL (80.0-100.0); MEAN PLATELET VOLUME 10.1 fL (7.4-10.4); MONOCYTES 9.4 % (2-11); NEUTROPHILS 60.6 % (40-80); RBC 4.33 10x6/uL (4.20-6.10); RDW 12.6 % (11.5-14.5); WBC 7.8 10x3/uL (4.8-10.8)
[2018-11-06 22:31] LABS: PLATELET COUNT 317 10x3/uL (130-400)
[2018-11-06 22:34] LABS: KETONE - SERUM MODERATE mg/dL (NEGATIVE)
[2018-11-06 22:35] LABS: APTT 24.3 SECONDS (22.8-39.4); INR 0.95 (0.85-1.17); PROTIME 12.2 SECONDS (11.6-15.0)
[2018-11-06 22:54] LABS: ALBUMIN 3.3 g/dL (3.4-5.0); ALKALINE PHOSPHATASE 185 U/L (46-116); ALT (SGPT) 18 U/L (10-68); BILIRUBIN - TOTAL 0.47 mg/dL (0.2-1.3); CALCIUM 8.2 mg/dL (8.5-10.1); CARBON DIOXIDE 21.6 mmol/L (21.0-32.0); CHLORIDE - SERUM 90 mmol/L (98-107); CREATINE KINASE 96 UL (21-232); CREATININE - SERUM 1.3 mg/dL (0.6-1.3); POTASSIUM - SERUM 5.4 mmol/L (3.5-5.1); PROTEIN - SERUM 7.2 g/dL (6.4-8.2); SODIUM 130 mmol/L (136-145); UREA NITROGEN 21 mg/dL (7-18); eGFR NON AFRICAN AMERICAN 66 mL/min (90-120)
[2018-11-06 22:55] LABS: CALC OSMOLALITY 291 mosm/kg (275-300); TROPONIN-I < 0.017 ng/mL (0.000-0.060)
[2018-11-06 22:56] LABS: GLUCOSE 602 mg/dL (74-106)
--- NOTE | 2018-11-06 23:06 | NUR ---
DR HOLLEY NOTIFIED AND REVIEWED RI'S BEHAVIOR AND ASSESSMENT RESULTS. PT IS A LOW RISK PER DR HOLLEY. DR HOLLEY STATED TO GIVE RESOURCES TO PT AT TIME OF DISCHARGE. NO FURTHER ORDERS AT THIS TIME. RESOURCES REVIEWED WITH PT AND HE VERBALIZED UNDERSTANDING.
[2018-11-07 00:31] VITALS: BP 102/66
[2018-11-07 01:04] LABS: ERYTHROCYTE SEDIMENTATION RATE 32 mm/hr (0-15)
[2018-11-07 01:31] LABS: UDS - AMPHET NEGATIVE QUAL (NEGATIVE); UDS - BARB NEGATIVE QUAL (NEGATIVE); UDS - BENZO NEGATIVE QUAL (NEGATIVE); UDS - COCAINE NEGATIVE QUAL (NEGATIVE); UDS - OPIATE NEGATIVE QUAL (NEGATIVE); UDS - PCP NEGATIVE QUAL (NEGATIVE); UDS - THC NEGATIVE QUAL (NEGATIVE)
--- NOTE | 2018-11-07 02:15 | NUR ---
RECIEVED TO ROOM 2125 FROM ER VIA . PT A&O. RESPERATIONS EVEN ON RA. IV TO LEFT AC WITH NS INFUSING AT 100 CC/HR, IV SITE CLEAN AND DRY. HISTORY AND MED REC OBTAINED. MULTIPLE SORES NOTED TO PTS RIGHT SHOULDER, RIGHT FOREARM AND BILATERAL SHINS, PT STATED THAT THEY ARE DIABETIC ULCERS. PT DENIES SEEING COMMUNICATIONS DIRECTOR. PLACED ON TELEMETRY, 75 SR PER MT. PT CURRETNLY DENIES PAIN OR NEEDS, BED LOW, CL IN REACH.
[2018-11-07] MEDS ORDERED: NOVOLOG100 UNIT/1 SC (02:28)
[2018-11-07] MEDS ORDERED: ZESTRIL10 MG PO (02:32)
[2018-11-07] MEDS ORDERED: ZYPREXA5 MG PO (02:32)
[2018-11-07] MEDS ORDERED: NEURONTIN800 MG PO (02:33)
[2018-11-07] MEDS ORDERED: TRAZODONE HCL150 MG PO (02:33)
[2018-11-07] MEDS ORDERED: METOPROLOL TART25 MG PO (02:34)
--- NOTE | 2018-11-07 02:52 | NUR ---
PT AMBULATING IN [place], GIAT STEADY.
--- NOTE | 2018-11-07 03:23 | NUR ---
I have reviewed this patient and I concur with the Shift Assessment completed by the Licensed Practical Nurse today this shift.
[2018-11-07 04:00] VITALS: BP 113/62
[2018-11-07 06:36] LABS: HEMATOCRIT 35.2 % (42.0-54.0); HEMOGLOBIN 12.3 g/dL (13.5-17.5); IMMATURE GRANULOCYTES 0.3 % (0-5); LYMPHOCYTES 39.2 % (15-50); MCH 30.1 pg (26.0-34.0); MCHC 34.9 g/dL (31.0-37.0); MEAN PLATELET VOLUME 9.8 fL (7.4-10.4); MONOCYTES 14.1 % (2-11); NEUTROPHILS 42.4 % (40-80); PLATELET COUNT 262 10x3/uL (130-400); RBC 4.09 10x6/uL (4.20-6.10); RDW 12.6 % (11.5-14.5)
[2018-11-07 06:37] LABS: MCV 86.1 fL (80.0-100.0); WBC 5.8 10x3/uL (4.8-10.8)
[2018-11-07 07:01] LABS: ALBUMIN 2.7 g/dL (3.4-5.0); ALKALINE PHOSPHATASE 125 U/L (46-116); ALT (SGPT) 18 U/L (10-68); CALCIUM 8.2 mg/dL (8.5-10.1); CHLORIDE - SERUM 101 mmol/L (98-107); CKMB 0.7 U/L (0.0-3.6); CREATINE KINASE 65 UL (21-232); PROTEIN - SERUM 5.8 g/dL (6.4-8.2); SODIUM 139 mmol/L (136-145); TROPONIN-I < 0.017 ng/mL (0.000-0.060)
[2018-11-07 07:03] LABS: CALC OSMOLALITY 281 mosm/kg (275-300); CARBON DIOXIDE 31.5 mmol/L (21.0-32.0); CREATININE - SERUM 0.9 mg/dL (0.6-1.3); GLUCOSE 153 mg/dL (74-106); POTASSIUM - SERUM 3.9 mmol/L (3.5-5.1); UREA NITROGEN 15 mg/dL (7-18); eGFR NON AFRICAN AMERICAN > 90 mL/min (90-120)
--- NOTE | 2018-11-07 07:32 | NUR ---
AWAKE AND ALERT. TELEMERTY SHOWS SR 72.LEFT FA WITH NS AT 100. PT HAS SORES TO LEFT SHOULDER, RIGHT FA AND BOTH SHINS. STATES THEYRE DIABTIC SORES. DENIES ANY NEEDS. SR UP WITH CALL LIGHT IN REACH
[2018-11-07 08:39] VITALS: BP 102/55
--- NOTE | 2018-11-07 10:37 | CN ---
PATIENT NAME:MARK HACKETT MEDICAL RECORD: [id number] : [birth year] LOCATION:D. D.2126 ADMIT DATE: 11/07/18 ACCOUNT: [id number] CONSULTING PHYSICIAN: RASTA CLEANING MD REFERRING PHYSICIAN: SIDDHARTHA OWENS MD DATE OF CONSULTATION: 11/07/2018 CARDIOLOGY CONSULT ADMITTING DIAGNOSES: 1. Abnormal ECG. 2. Pericarditis. 3. Chest pain. 4. Hypertension. 5. Hyperlipidemia. 6. Insulin-dependent diabetes. 7. Diabetic ketoacidosis. HISTORY OF PRESENT ILLNESS: Mr. Hackett presents with chest pain, this has been going on for approximately 3-4 days. His EKG is compatible with pericarditis. He had a cardiac catheterization within the past year that was normal. He has no ST-T changes other than diffuse ST elevation. He has not had a recent viral illness. He as well was in DKA and is being treated for that. He has a history of hypertension, hyperlipidemia as well as diabetes. PHYSICAL EXAMINATION: CONSTITUTIONAL/GENERAL APPEARANCE: Well nourished, well developed, appears stated age. EYES: Lids and conjunctivae noninjected. No discharge. No pallor. ENT: Lips within normal limit. No cyanosis. No pallor. NECK: Carotid arteries, bilateral normal upstroke. No bruits. No thrills. No jugular venous pressure or distention. CERVICAL LYMPH NODES: Nontender. Nonenlarged. THYROID: Not enlarged. No nodules. CARDIOVASCULAR: Precordial exam, nondisplaced. No heaves or pericardial thrills. Rate and rhythm, regular. Heart sounds, normal S1, normal S2. No S3, no gallop, no rub. Systolic murmur, not heard. Diastolic murmur, not heard. RESPIRATORY: Respiratory effort, unlabored. Normal curvature. No thoracic deformity. No chest wall tenderness. Percussion, resonant. Auscultation, clear. No wheezes, no rales, no rhonchi. ABDOMEN: Soft, nondistended, nontender. No abdominal pain, no vomiting and normal appetite. MUSCULOSKELETAL: No joint tenderness, normal gait, normal tone. SKIN: Warm and dry. OVERALL IMPRESSION: Chest pain. EKG is very compatible with pericarditis, most likely has viral pericarditis. We will get an echocardiogram to make sure he does not have an effusion. He has been started on Indocin 50 mg q.8 hours, would not give him steroids at this time due to the high blood sugar and that would worsen the high blood sugar, would only use nonsteroidals. Other than the echocardiogram, no other cardiac workup or treatment is necessary. TRANSINT:[id number] Voice Confirmation ID: [id number] DOCUMENT ID: [id number] CONSULT REPORT [id number] MARK HACEKTT JEFFREY MD at 1037 CC: [id number] DICTATION DATE: 11/07/18 0855 HAT CONDITIONER: 11/07/18 1030 ADM IN [facility] [address] [id number]
[2018-11-07 11:34] VITALS: BP 131/80
--- NOTE | 2018-11-07 14:23 | NUR ---
I have reviewed this patient and I concur with the Shift Assessment completed by the Licensed Practical Nurse today this shift.
[2018-11-07 15:10] VITALS: Ht 190.5 cm; Wt 100.1 kg
[2018-11-07] MEDS ORDERED: INDOCIN25 MG PO (15:19)
[2018-11-07 15:42] VITALS: BP 122/71
--- NOTE | 2018-11-07 16:32 | MORECARE ---
CASE MANAGEMENT DISCHARGE SUMMARY PATIENT: MARK HACKETT UNIT: [id number] ADM DATE: 11/07/18 AGE: 38 : [birth year] SEX: M ROOM/BED: D.9556 AUTHOR: HOLA,DOC PHYSICIAN: REFERRING PHYSICIAN: SIDDHARTHA OWENS MD DATE OF SERVICE: 11/07/18 Discharge Plan Patient Name: MARK HACKETT Facility: [facility]:[place] : 1980 Planned Disposition: Home Anticipated Discharge Date: 11/07/18 Discharge Date: Expected LOS: 1 Initial Reviewer: [email or web address] Initial Review Date: 11/07/2018 Generated: 11/07/18 5:32 pm Comments DCP- Discharge Planning Updated by [email or web address]: Alvin Diaz on 11/07/18 3:[address] Patient Name: MARK HACKETT Admission Status: ER Accout number: [id number] Admission Date: 11-07-2018 : 1980 Admission Diagnosis: Attending: HERNAN OWENS Current LOS: 1 Anticipated DC Date: 11-07-2018 Planned Disposition: Home Primary Insurance: MEDICAID [place] Discharge Planning Comments: CM MET WITH PT IN ROOM TO DISCUSS DISCHARGE PLANNING AND NEEDS. PT REPORTS LIVING AT HOME INDEPENDENTLY WITH SPOUSE. PT HAS NO MEDICAL EQUIPMENT AND NO OUTSIDE SERVICES ASSISTING IN THE HOME. CM DISCUSSED AVAILABILITY OF HOME HEALTH, REHAB SERVICES AND MEDICAL EQUIPMENT. PT DENIES DISCHARGE NEEDS, REPORTS HIS WILL PICK HIM UP FOR DISCHARGE HOME. Size Worker: Alvin Diaz DCPIA - Discharge Planning Initial Assessment Updated by [email or web address]: Alvin Diaz on 11/07/18 4:28 pm * Is the patient Alert and Oriented? Yes * How many steps to enter\exit or inside your home? * PCP DR. HAUSER * Pharmacy [facility] * Preadmission Environment Home with Family * ADLs Independent * Equipment None * Other Equipment NONE * List name and contact numbers for known caregivers / representatives who currently or will assist patient after discharge: WILLIAN HACKETT, SPOUSE, * Verbal permission to speak to the caregivers and representatives has been obtained from the patient. N/A * Community resources currently utilized None * Please name any agencies selected above. NONE * Additional services required to return to the preadmission environment? No * Can the patient safely return to the preadmission environment? Yes * Has this patient been hospitalized within the prior 30 days at any hospital? No Patient Name: MARK HACKETT Page [id number] at 1632 All edits/amendments must be made on the electronic document DICTATION DATE: 11/07/18 163 GEAR REPAIR SUPERVISOR: BRETT 11/07/18 1632 RPT#: [id number] DC DATE: STATUS: ADM IN [facility] [address] [place] [address] END OF REPORT
--- NOTE | 2018-11-14 13:38 | EC ---
PATIENT:MARK HACKETT DATE OF SERVICE: 11/07/18 SEX: M MEDICAL RECORD: [id number] DATE OF : [birth year] LOCATION:D.M2 D.212 AGE OF PATIENT: 38 ADMISSION DATE: 11/07/18 REFERRING PHYSICIAN: INTERPRETING PHYSICIAN: RASTA FAYE MD ECHOCARDIOGRAM REPORT ECHO CHARGES 4 ECHO COMPLETE Date: 11/07/18 CLINICAL DIAGNOSIS: PERCARDITIS ECHOCARDIOGRAPHIC MEASUREMENTS (adult normal given) AC root (d.<3.7cm) 3.3 cm LV Septum d (<1.2 cm> 1.4 cm Valve Excursion 1.6 cm LV Septum (systole) 1.5 cm Left Atria (s.<4.0cm> 3.1 cm LVPW d(<1.2cm) 1.2 cm RV (d.<2.3cm) 3.3 cm LVPW (sytole) 1.7 cm LV diastole(<5.6CM) 5.0 cm MV E-F(>70mm/sec) cm LV systole 3.7 cm LVOT Diameter 2.1 cm MV exc.(>10mm) 1.6 cm Est.ejection fraction (50-75%) % DOPPLER: LVIT cm/sec A 92.0 cm/sec E 88.0 cm/sec LA cm/sec RVSP 21 mmHg LVOT 107 cm/sec AOP1/2T m/s Asc. Ao 130 cm/sec RVOT 63 cm/sec RA cm/sec PA 107 cm/sec AV Gradient Peak 6.77 mmHg AV Mean 3.42 mmHg AV Area 2.8 cm MV Gradient Peak 3.11 mmHg MV Mean 1.23 mmHg MV Area cm COMMENTS: Squash Centre Manager: 2 TERE SANDHU Rn Occupational: 1 Dr. Faye TAPE# PACS Pericardial Effusion N DATE OF SERVICE: FINDINGS: 1. Left ventricular chamber size is within normal limits. Left ventricular systolic function is normal. Overall ejection fraction estimated at 55%. 2. Left atrium, right atrium, and right ventricular chamber sizes are within normal limits. 3. Valvular structures have normal structure and motion. 4. Doppler interrogation reveals no significant valvular insufficiency or stenosis. Pulmonary systolic pressure is normal estimated at 21 mmHg. ECHOCARDIOGRAM REPORT [id number] MARK HACKETT 5. No evidence of pericardial effusion or left ventricular thrombus. Pericardium appears normal echocardiographically. TRANSINT:[id number] Voice Confirmation ID: [id number] DOCUMENT ID: [id number] RASTA FAYE MD at 1338 CC: [id number] DICTATION DATE: 11/07/18 1212 GRIT BLASTER: 11/07/18 1244 DIS IN 11/07/18 [facility] [address] [id number]
== END 2018-11-07 18:39 | disposition home or self-care (01) | DRG 314 ==
LOC: D.ER 21:48 → D.M2 11-07 01:33
PROVIDERS: Family Medicine; ADMIT Emergency Medicine; ATTEND Emergency Medicine
DX: I31.9 Disease of pericardium, unspecified (principal); E11.10 Type 2 diabetes mellitus with ketoacidosis without coma; E11.65 Type 2 diabetes mellitus with hyperglycemia; Z79.4 Long term (current) use of insulin; I25.10 Atherosclerotic heart disease of native coronary artery without angina pectoris; I10 Essential (primary) hypertension; E78.5 Hyperlipidemia, unspecified; D64.9 Anemia, unspecified; Z95.5 Presence of coronary angioplasty implant and graft; F17.200 Nicotine dependence, unspecified, uncomplicated

== ENCOUNTER 2019-01-15 09:26 | Inpatient (IN) | payer MEDICAID ==
[~2019-01-15] VITALS: Ht 182.9 cm; Wt 99.3 kg
[~2019-01-15 09:26] MED LIST changes: +INDOCIN25 MG PO; +METOPROLOL TART25 MG PO; +NEURONTIN800 MG PO; +NOVOLOG100 UNIT/1 SC; +TRAZODONE HCL150 MG PO; +ZESTRIL10 MG PO; +ZETIA10 MG PO; +ZYPREXA10 MG PO; +ZYPREXA5 MG PO
--- NOTE | 2019-01-15 09:57 | NUR ---
URINE SAMPLE SENT WITH LAB AT THIS TIME
[2019-01-15 10:04] LABS: HEMATOCRIT 46.4 % (42.0-54.0); HEMOGLOBIN 15.6 g/dL (13.5-17.5); LYMPHOCYTES 11.4 % (15-50); MCH 30.2 pg (26.0-34.0); MCHC 33.6 g/dL (31.0-37.0); MCV 89.7 fL (80.0-100.0); MEAN PLATELET VOLUME 9.9 fL (7.4-10.4); NEUTROPHILS 84.6 % (40-80); RBC 5.17 10x6/uL (4.20-6.10); RDW 12.4 % (11.5-14.5); WBC 11.6 10x3/uL (4.8-10.8)
[2019-01-15 10:07] LABS: PLATELET COUNT 336 10x3/uL (130-400)
[2019-01-15 10:13] LABS: KETONE - SERUM MODERATE mg/dL (NEGATIVE)
[2019-01-15 10:16] LABS: APPEARANCE CLEAR (CLEAR); BILIRUBIN NEGATIVE (NEGATIVE); COLOR YELLOW (YELLOW); GLUCOSE 500 mg/dL (NEGATIVE); KETONE MODERATE mg/dL (NEGATIVE); NITRITE NEGATIVE (NEGATIVE); PROTEIN NEGATIVE (NEGATIVE); SPECIFIC GRAVITY 1.015 (1.005-1.020); UROBILINOGEN NORMAL (NORMAL)
[2019-01-15 10:21] LABS: ALBUMIN 3.6 g/dL (3.4-5.0); ALKALINE PHOSPHATASE 179 U/L (46-116); ALT (SGPT) 28 U/L (10-68); AMYLASE - SERUM 26 U/L (25-115); BILIRUBIN - TOTAL 0.89 mg/dL (0.2-1.3); CALCIUM 9.3 mg/dL (8.5-10.1); CHLORIDE - SERUM 94 mmol/L (98-107); CREATININE - SERUM 1.3 mg/dL (0.6-1.3); MAGNESIUM - SERUM 2.1 mg/dL (1.8-2.4); POTASSIUM - SERUM 4.4 mmol/L (3.5-5.1); PROTEIN - SERUM 7.5 g/dL (6.4-8.2); SODIUM 134 mmol/L (136-145); UREA NITROGEN 21 mg/dL (7-18); eGFR NON AFRICAN AMERICAN 66 mL/min (90-120)
[2019-01-15 10:25] LABS: CALC OSMOLALITY 293 mosm/kg (275-300); LIPASE 39 U/L (73-393)
[2019-01-15 10:27] LABS: GLUCOSE 512 mg/dL (74-106)
--- NOTE | 2019-01-15 10:27 | NUR ---
NOTIFIED BY LAB OF GLUCOSE OF 512 CRITICAL LAB SHEET COMPLETED AND PLACED ON PT'S CHART. EDP NOTIFIED.
[2019-01-15 11:24] VITALS: BP 128/64
--- NOTE | 2019-01-15 11:25 | NUR ---
PT LYING IN BED, SEMI-CHAPPELL'S. NO SIGNS OF DISRESS. RESPIRATIONS EVEN AND UNLABORED ON RA. IV INFUSING ORDERED WITHOUT SIGNS OF INFILTRATION. CALL LIGHT IN REACH, SIDE RAILS RAISED X2. WILL CONTINUE TO MONITOR.
--- NOTE | 2019-01-15 12:14 | NUR ---
I have reviewed this patient and I concur with the Shift Assessment completed by the Licensed Practical Nurse today this shift.
--- NOTE | 2019-01-15 12:45 | NUR ---
ADMITTED FROM ER. ALERT AND ORIENTED. OPEN ULCER TO R [place],R SHOULDER,R ARM, R KNEE. MULT SCABS/SORES ON ALEX LE. CL IN REACH.
[2019-01-15 12:52] VITALS: BP 140/75
--- NOTE | 2019-01-15 13:06 | MORECARE ---
CASE MANAGEMENT DISCHARGE SUMMARY PATIENT: MARK PARADA UNIT: [id number] ADM DATE: 01/15/19 AGE: 38 : 82 SEX: M ROOM/BED: D.1206 AUTHOR: HOLA,DOC PHYSICIAN: REFERRING PHYSICIAN: IDALIA HAUSER MD DATE OF SERVICE: 01/15/19 Discharge Plan Patient Name: MARK PARADA Facility: [facility]:[place] : 1980 Planned Disposition: Home Anticipated Discharge Date: 01/17/19 Discharge Date: Expected LOS: 2 Initial Reviewer: [email or web address] Initial Review Date: 01/15/2019 Generated: 01/15/19 2:05 pm DCP- Discharge Planning Updated by [email or web address]: Nicole Cartagena on 01/15/19 12:[address] DC PLAN: Return home with . ANTICIPATED DC NEEDS: Denied known dc needs at time of assessment. CM met with patient to complete initial dc planning assessment. CM educated patient on the CM role and verbal consent given by patient to complete assessment. CM verified patient's address, phone number, and emergency contact phone numbers. Patient lives at home with his . He reports he is mostly independent but gets weak from time to time and requires assistance from his wire. At discharge patient plans to return home and feels this is a safe discharge. He reports he has everything he needs at home for discharge. CM discussed availability of home health, rehab services, and medical equipment. Patient denied known discharge needs at this time. Transportation provider at discharge will be his . CM will continue to follow and will assist as needed with dc plans/needs. Nicole Cartagena RN, [facility] DCPIA - Discharge Planning Initial Assessment Updated by [email or web address]: Nicole Cartagena on 01/15/19 1:00 pm * Is the patient Alert and Oriented? Yes * How many steps to enter\exit or inside your home? * PCP Dr. Hauser * Pharmacy [facility] on [address] * Preadmission Environment Home with Family * ADLs Independent * Equipment Cane Glucometer * List name and contact numbers for known caregivers / representatives who currently or will assist patient after discharge: Cris Parada - - [phone] * Verbal permission to speak to the caregivers and representatives has been obtained from the patient. Yes * Community resources currently utilized None * Additional services required to return to the preadmission environment? No * Can the patient safely return to the preadmission environment? Yes * Has this patient been hospitalized within the prior 30 days at any hospital? No Patient Name: MARK PARADA Page [id number] at 1306 All edits/amendments must be made on the electronic document DICTATION DATE: 01/15/19 130 MATERNITY NURSE: BRETT 01/15/19 130 RPT#: [id number] DC DATE: STATUS: ADM IN [facility] [address] [place] [address] END OF REPORT
--- NOTE | 2019-01-15 14:37 | NUR ---
DR. HOLLEY NOTIFIED AND REVIEWED PT'S BEHAVIOR AND ASSESSMENT RESULTS. PT IS A LOW RISK PER DR. HOLLEY. DR. HOLLEY STATED TO GIVE RESOURCES TO PT AT TIME OF DISCHARGE. NO FURTHER ORDERS AT THIS TIME. RESOURCES REVIEWED WITH PT AND HE VERBALIZED UNDERSTANDING.
--- NOTE | 2019-01-15 15:54 | NUR ---
Pt has several chronic wounds he says "start as blisters, hurt really bad and bust". Right horan has a 2cm x 2cm x 0.3cm wound. Red wound bed and crusty edges. Right arm 3cm x 1cm with scab and right shoulder 1cm x 2cm with scab. He has numerous scars on his neck, bilateral legs and arms from the "same kind of sores". Pt states that he has been using bactrim ointment on them. Will recommend continuing bactrim.
[2019-01-15 19:30] VITALS: BP 125/77
--- NOTE | 2019-01-15 20:00 | NUR ---
PT RESTING IN BED WITH EYES OPEN. ALERT AND ORIENTED X 3. DENIES ACUTE PAIN OR DISCOMFORT AT THIS TIME, BUT IS UPSET ABOUT HIS NPO ORDER. CHRONIC WOUNDS TO LEFT ARM AND SHOULDER, AND LEG TREATED ORDERED. IV INFUSING TO LEFT HAND WITHOUT DIFFICULTY. NO REDNESS OR EDEMA NOTED AT THE INSERTION SITE. SR'S ARE UP X 2 IN BED. CALL LIGHT AND BEDSIDE TABLE ARE WITHIN EASY REACH.
--- NOTE | 2019-01-15 22:30 | NUR ---
PT UP AMBULATING IN HALLS AD MABEL. NO NEEDS VOICED.
--- NOTE | 2019-01-16 01:00 | NUR ---
PT IS RESTING IN BED WITH EYES CLOSED. UAL TO BATHROOM PRN.
[2019-01-16 04:00] VITALS: BP 119/70
--- NOTE | 2019-01-16 04:17 | NUR ---
PT IS RESTING QUIETLY IN BED WITH EYES CLOSED. RESPS ARE EVEN AND UNLABORED. NO ACUTE DISTRESS NOTED.
[2019-01-16 06:09] LABS: BASOPHILS 0.4 % (0-2); EOSINOPHILS 2.6 % (0-7); HEMATOCRIT 37.9 % (42.0-54.0); HEMOGLOBIN 12.5 g/dL (13.5-17.5); IMMATURE GRANULOCYTES 0.4 % (0-5); LYMPHOCYTES 26.7 % (15-50); MCH 29.7 pg (26.0-34.0); MEAN PLATELET VOLUME 10.3 fL (7.4-10.4); MONOCYTES 6.2 % (2-11); NEUTROPHILS 63.7 % (40-80); PLATELET COUNT 297 10x3/uL (130-400); RBC 4.21 10x6/uL (4.20-6.10); RDW 12.7 % (11.5-14.5); WBC 11.5 10x3/uL (4.8-10.8)
[2019-01-16 06:38] LABS: ALKALINE PHOSPHATASE 110 U/L (46-116); BILIRUBIN - TOTAL 0.48 mg/dL (0.2-1.3); CALCIUM 7.9 mg/dL (8.5-10.1); CHLORIDE - SERUM 106 mmol/L (98-107); PROTEIN - SERUM 5.7 g/dL (6.4-8.2); SODIUM 140 mmol/L (136-145)
[2019-01-16 06:46] LABS: ALBUMIN 2.5 g/dL (3.4-5.0); ALT (SGPT) 17 U/L (10-68); CALC OSMOLALITY 280 mosm/kg (275-300); CARBON DIOXIDE 21.3 mmol/L (21.0-32.0); CREATININE - SERUM 0.8 mg/dL (0.6-1.3); GLUCOSE 154 mg/dL (74-106); POTASSIUM - SERUM 3.4 mmol/L (3.5-5.1); UREA NITROGEN 11 mg/dL (7-18); eGFR NON AFRICAN AMERICAN > 90 mL/min (90-120)
[2019-01-16 09:06] VITALS: BP 138/85
[2019-01-16 11:00] VITALS: BP 140/79
[2019-01-16 13:21] VITALS: Ht 182.9 cm; Wt 99.3 kg
--- NOTE | 2019-01-16 13:51 | NUR ---
I have reviewed this patient and I concur with the Shift Assessment completed by the Licensed Practical Nurse today this shift.
[2019-01-16 15:47] VITALS: BP 113/69
[2019-01-16 20:00] VITALS: BP 103/54
[2019-01-16] MEDS ORDERED: NOVOLOG100 UNIT/1 SQ (21:14)
--- NOTE | 2019-01-16 22:00 | NUR ---
A&O X 4. AMBULATES INDEPENDENTLY. REPORTS HE DOES NOT FEEL SOFT-MODERATE TOUCH TO LEGS. HAS QUESTIONS FOR DR REGARDING HARDENED LUMP IN UPPER CALF OF LEFT LEG. DRESSINGS TO LEFT SHOULDER, ARM, AND [place] REMOVED, CLEANSED AND MEDICATED WITH OINTMENT AND DRESSED. PT TOLERATED WELL, CONTINUE PLAN OF CARE.
[2019-01-17 04:35] VITALS: BP 105/56
[2019-01-17 06:35] LABS: CALC OSMOLALITY 288 mosm/kg (275-300); CALCIUM 7.9 mg/dL (8.5-10.1); CARBON DIOXIDE 23.3 mmol/L (21.0-32.0); CHLORIDE - SERUM 109 mmol/L (98-107); CREATININE - SERUM 0.8 mg/dL (0.6-1.3); GLUCOSE 174 mg/dL (74-106); POTASSIUM - SERUM 3.9 mmol/L (3.5-5.1); SODIUM 144 mmol/L (136-145); eGFR NON AFRICAN AMERICAN > 90 mL/min (90-120)
[2019-01-17 06:43] LABS: UREA NITROGEN 8 mg/dL (7-18)
[2019-01-17 06:45] LABS: BASOPHILS 0.3 % (0-2); EOSINOPHILS 2.1 % (0-7); HEMATOCRIT 36.8 % (42.0-54.0); IMMATURE GRANULOCYTES 0.1 % (0-5); LYMPHOCYTES 36.3 % (15-50); MCH 29.8 pg (26.0-34.0); MCHC 32.6 g/dL (31.0-37.0); MCV 91.3 fL (80.0-100.0); MEAN PLATELET VOLUME 10.1 fL (7.4-10.4); MONOCYTES 7.3 % (2-11); NEUTROPHILS 53.9 % (40-80); PLATELET COUNT 299 10x3/uL (130-400); RBC 4.03 10x6/uL (4.20-6.10); RDW 12.6 % (11.5-14.5)
[2019-01-17 06:48] LABS: WBC 7.3 10x3/uL (4.8-10.8)
--- NOTE | 2019-01-17 08:00 | NUR ---
PT RESTING IN BED WITH EYES OPEN CALL LIGHT IN REACH EATING BREAKFAST TOLERATING WELL WILL MONITER
--- NOTE | 2019-01-17 08:41 | MORECARE ---
CASE MANAGEMENT DISCHARGE SUMMARY PATIENT: MARK PARADA UNIT: [id number] ADM DATE: 01/15/19 AGE: 38 : 82 SEX: M ROOM/BED: D.1206 AUTHOR: HOLADOC PHYSICIAN: REFERRING PHYSICIAN: IDALIA HAUSER MD DATE OF SERVICE: 01/17/19 Discharge Plan Patient Name: MARK PARADA Facility: [facility]:[place] : 1980 Planned Disposition: Home Anticipated Discharge Date: 01/17/19 Discharge Date: Expected LOS: 2 Initial Reviewer: [email or web address] Initial Review Date: 01/15/2019 Generated: 01/17/19 9:41 am Comments DCP- Discharge Planning Updated by [email or web address]: Kaur Cancino on 01/17/19 7:[address] Patient Name: MARK PARADA Encounter No: [id number] : 1980 Primary Insurance: MEDICAID [place] Anticipated DC Date: 01-17-2019 Planned Disposition: Home External Planned Provider: : DCP follow-up note: Patient and family in agreement with discharge plan. No changes to plan. No needs identified. Case management will follow and assist as needed. Kaur Cancino DCP- Discharge Planning Updated by [email or web address]: Nicole Cartagena on 01/15/19 12:[address] DC PLAN: Return home with . ANTICIPATED DC NEEDS: Denied known dc needs at time of assessment. CM met with patient to complete initial dc planning assessment. CM educated patient on the CM role and verbal consent given by patient to complete assessment. CM verified patient's address, phone number, and emergency contact phone numbers. Patient lives at home with his . He reports he is mostly independent but gets weak from time to time and requires assistance from his wire. At discharge patient plans to return home and feels this is a safe discharge. He reports he has everything he needs at home for discharge. CM discussed availability of home health, rehab services, and medical equipment. Patient denied known discharge needs at this time. Transportation provider at discharge will be his . CM will continue to follow and will assist as needed with dc plans/needs. Nicole Cartagena RN, [facility] DCPIA - Discharge Planning Initial Assessment Updated by [email or web address]: Nicole Cartagena on 01/15/19 1:00 pm * Is the patient Alert and Oriented? Yes * How many steps to enter\exit or inside your home? * PCP Dr. Hauser * Pharmacy [facility] on [address] * Preadmission Environment Home with Family * ADLs Independent * Equipment Cane Glucometer * List name and contact numbers for known caregivers / representatives who currently or will assist patient after discharge: Cris Parada - - [phone] * Verbal permission to speak to the caregivers and representatives has been obtained from the patient. Yes * Community resources currently utilized None * Additional services required to return to the preadmission environment? No * Can the patient safely return to the preadmission environment? Yes * Has this patient been hospitalized within the prior 30 days at any hospital? No Last DP export: 01/15/19 12:06 Patient Name: MARK PARADA Page [id number] at 0841 All edits/amendments must be made on the electronic document DICTATION DATE: 01/17/19840 HIM CODER: BRETT 01/17/19840 RPT#: [id number] DC DATE: STATUS: ADM IN [facility] [address] [place] [address] END OF REPORT
--- NOTE | 2019-01-17 10:26 | NUR ---
PT DISCHARGED TO HOME WITH DISCHARGE SUMMARY AND MEDS WERE REVIEWED AND SIGNED NO FURTHER QUESTIONS
--- NOTE | 2019-01-19 15:51 | MORECARE ---
CASE MANAGEMENT DISCHARGE SUMMARY PATIENT: MARK PARADA UNIT: [id number] ADM DATE: 01/15/19 AGE: 38 : 82 SEX: M ROOM/BED: D.1206 AUTHOR: HOLA,DOC PHYSICIAN: REFERRING PHYSICIAN: IDALIA HAUSER MD DATE OF SERVICE: 01/19/19 Discharge Plan Patient Name: MARK PARADA Facility: [facility]:[place] : 1980 Planned Disposition: Home Anticipated Discharge Date: 01/17/19 Discharge Date: 01/17/2019 Expected LOS: 2 Initial Reviewer: [email or web address] Initial Review Date: 01/15/2019 Generated: 01/19/19 4:51 pm Comments DCP- Discharge Planning Updated by [email or web address]: Kaur Cancino on 01/17/19 7:[address] Patient Name: MARK PARADA Encounter No: [id number] : 1980 Primary Insurance: MEDICAID [place] Anticipated DC Date: 01-17-2019 Planned Disposition: Home External Planned Provider: : DCP follow-up note: Patient and family in agreement with discharge plan. No changes to plan. No needs identified. Case management will follow and assist as needed. Kaur Cancino DCP- Discharge Planning Updated by [email or web address]: Nicole Cartagena on 01/15/19 12:[address] DC PLAN: Return home with . ANTICIPATED DC NEEDS: Denied known dc needs at time of assessment. CM met with patient to complete initial dc planning assessment. CM educated patient on the CM role and verbal consent given by patient to complete assessment. CM verified patient's address, phone number, and emergency contact phone numbers. Patient lives at home with his . He reports he is mostly independent but gets weak from time to time and requires assistance from his wire. At discharge patient plans to return home and feels this is a safe discharge. He reports he has everything he needs at home for discharge. CM discussed availability of home health, rehab services, and medical equipment. Patient denied known discharge needs at this time. Transportation provider at discharge will be his . CM will continue to follow and will assist as needed with dc plans/needs. Nicole Cartagena RN, [facility] DCPIA - Discharge Planning Initial Assessment Updated by [email or web address]: Nicole Cartagena on 01/15/19 1:00 pm * Is the patient Alert and Oriented? Yes * How many steps to enter\exit or inside your home? * PCP Dr. Hauser * Pharmacy [facility] [address] * Preadmission Environment Home with Family * ADLs Independent * Equipment Cane Glucometer * List name and contact numbers for known caregivers / representatives who currently or will assist patient after discharge: Cris Parada - - [phone] * Verbal permission to speak to the caregivers and representatives has been obtained from the patient. Yes * Community resources currently utilized None * Additional services required to return to the preadmission environment? No * Can the patient safely return to the preadmission environment? Yes * Has this patient been hospitalized within the prior 30 days at any hospital? No Last DP export: 01/17/19 7:41 Patient Name: MARK PARADA Page [id number] at 1551 All edits/amendments must be made on the electronic document DICTATION DATE: 01/19/191550 SOCIAL MEDIA EDITOR: BRETT 01/19/191550 RPT#: [id number] DC DATE:01/17/19 STATUS: DIS IN [facility] [address] [place] [address] END OF REPORT
== END 2019-01-17 10:33 | disposition home or self-care (01) | DRG 391 ==
LOC: D.ER 09:26 → D.M3 11:17
PROVIDERS: Family Medicine; Legal Medicine; ADMIT Emergency Medicine; ATTEND Emergency Medicine
DX: K52.9 Noninfective gastroenteritis and colitis, unspecified (principal); E10.10 Type 1 diabetes mellitus with ketoacidosis without coma; Z79.4 Long term (current) use of insulin; I10 Essential (primary) hypertension; E78.5 Hyperlipidemia, unspecified